=== PATIENT | male | born 1960 | race Caucasian/White ===

== ENCOUNTER → 2020-03-29 | Outpatient (CLI) | payer OTHER ==
[~2020-03-29] MED LIST: ASPI81TA59 PO; ATOR10TA60 PO; HYDR12.58 PO; IBUP800T19 PO; MULT-245 PO; OMEP20TA63 PO; TELM40TA PO
== END ==
LOC: LAB 12:13
PROVIDERS: ATTEND Nurse Anesthetist, Certified Registered
DX: Z20.828 Contact with and (suspected) exposure to other viral communicable diseases (principal)
CPT/HCPCS: U0003-CS

== ENCOUNTER → 2020-04-01 | Day surgery (SDC) | payer OTHER ==
[~2020-04-01] MED LIST changes: +IPRATRPIUM/ALBUTEROL 0.5/2.5MG 3 ML NEBU. NEB PRN; +IV RINGERS SOLUTION,LACTATED 1,000 ML IV SCH; +MIDAZOLAM HCL PF 2 MG/2 ML VIAL. IV ONE; +ONDANSETRON PF 4 MG/2 ML VIAL. IV PRN; +PROPOFOL 10,000 MCG/ML (20ML) VIAL IV ONE
[2020-04-01 08:56] VITALS: BP 129/92
== END | disposition home or self-care (01) ==
LOC: SURG 06:47
PROVIDERS: ATTEND Internal Medicine Gastroenterology
DX: Z12.11 Encounter for screening for malignant neoplasm of colon (principal); K57.30 Diverticulosis of large intestine without perforation or abscess without bleeding; K63.89 Other specified diseases of intestine; I10 Essential (primary) hypertension; M19.90 Unspecified osteoarthritis, unspecified site; K21.9 Gastro-esophageal reflux disease without esophagitis; E78.00 Pure hypercholesterolemia, unspecified; G47.33 Obstructive sleep apnea (adult) (pediatric); Z98.890 Other specified postprocedural states; Z79.899 Other long term (current) drug therapy; Z79.82 Long term (current) use of aspirin; Z98.52 Vasectomy status
CPT/HCPCS: 45378; J2704; J7120

== ENCOUNTER 2020-04-11 21:07 | Emergency (ER) | payer OTHER ==
[~2020-04-11] VITALS: Ht 167.6 cm; Wt 78.9 kg
[2020-04-11 21:07] VITALS: BP 133/91
[~2020-04-11 21:07] MED LIST changes: -IPRATRPIUM/ALBUTEROL 0.5/2.5MG 3 ML NEBU. NEB PRN; -IV RINGERS SOLUTION,LACTATED 1,000 ML IV SCH; -MIDAZOLAM HCL PF 2 MG/2 ML VIAL. IV ONE; -ONDANSETRON PF 4 MG/2 ML VIAL. IV PRN; -PROPOFOL 10,000 MCG/ML (20ML) VIAL IV ONE
--- NOTE | 2020-04-11 22:16 | PHYS DOC ---
Past History Past Medical History: No Pertinent History Past Surgical History: No Surgical History Alcohol Use: Occasionally Adult General Chief Complaint Chief Complaint: LACERATION/AVULSION [facility] HPI Patient is a 59-year-old male who presents for right desir laceration. Onset was greater than 12 hours ago at approximately 8:30 AM. Patient reports taking trash out and aluminum can lid pierced through trash can causing laceration to right anterior desir. Patient reported irrigating site with water and Betadine and applying pressure dressing. He reports reevaluating laceration site later this evening and due to continued bleeding applied additional pressure dressing and reported to our ER for evaluation. Of note, patient takes 81 mg aspirin daily. He is up-to-date on tetanus vaccinations. Patient otherwise asymptomatic, no shortness of breath, lightheadedness/dizziness, syncope, or pallor or fatigue since injury onset Review of Systems Review of Systems Fourteen body systems of review of systems have been reviewed. See HPI for pertinent positives and negative responses, other collado all other systems are negative, non-pertinent or non-contributory Allergies Allergies Allergies Coded Allergies Type Severity Reaction Last Updated Verified No Known Drug Allergies 03/25/20 No Physical Exam Physical Exam Constitutional: Well developed, well nourished, no acute distress, non-toxic appearance. HENT: Normocephalic, atraumatic, bilateral external ears normal, oropharynx moist, no oral exudates, nose normal. Eyes: PERRLA, EOMI, conjunctiva normal, no discharge. Neck: Normal range of motion, no tenderness, supple, no stridor. Cardiovascular: Heart rate regular, sinus rhythm, no murmurs rubs or gallops Lungs & Thorax: Bilateral breath sounds clear to auscultation Abdomen: Bowel sounds normal, soft, no tenderness, no masses, no pulsatile masses. Nonsurgical abdomen, no peritoneal signs Skin: Warm, dry, no erythema, no rash. Simple horizontal 2.5 cm laceration with epidermal and mild dermis involvement to right anterior desir with minimal bleeding present, no underlying ligamentous/tendon/nerve/muscle belly inv olvement present Back: No tenderness, no CVA tenderness. Extremities: No tenderness, no cyanosis, no clubbing, ROM intact, no edema. Neurologic: Alert and oriented X 3, grossly normal motor & sensory function, no focal deficits noted. Psychologic: Affect normal, judgement normal, mood normal. Current Patient Data Vital Signs Vital Signs Date Time Temp Pulse Resp B/P (MAP) Pulse Ox O2 Delivery O2 Flow Rate FiO2 04/11/20 21:07 98.6 72 18 133/91 (105) 99 Room Air EKG EKG [] Radiology/Procedures Radiology/Procedures [] Course & Med Decision Making Course & Med Decision Making ABCs non-concerning Comprehensive history and physical exam obtained, pressure dressing unwrapped and direct pressure was applied for approximately 15 minutes with hemostasis achieved Patient was observed in our ER without recurrence of bleeding. Discussed potential options of closure, given superficial extent of injury, joint decision to apply Dermabond, this was performed and patient tolerated it well Ultimately, patient eager and ready for discharge, I feel this is appropriate with close PCP follow-up in upcoming 3 to 10 days time Strict return precautions were discussed with good understanding by patient, all questions and concerns addressed prior to ER departure in stable condition Dragon Disclaimer Dragon Disclaimer This electronic medical record was generated, in whole or in part, using a voice recognition dictation system. Laceration Repair Lac Repair Indication: Simple superficial laceration to right anterior desir Procedure: The patient was placed in the appropriate position and irrigated with water and cleansed with topical alcohol wipe. Dermabond was applied with good approximation of skin borders. Site was cleansed and clean dressing was applied Total repaired wound length: 2.5 cm Other Items: Dermabond The patient tolerated the procedure well without any apparent complications noted or reported Departure Departure: Impression: Primary Impression: Laceration of skin of right lower leg without complication Disposition: 01 HOME/RESIDENCE PRIOR TO ADM Condition: STABLE Referrals: SHARIFA SIGALA DO (PCP) Patient Instructions: Laceration Care, Adult Justification of Admission: Justification of Admission: Justification of Admission Dx: N/A DANIKA SERVIN DO Apr 11, 2020 22:16
== END 2020-04-11 22:40 | disposition home or self-care (01) ==
LOC: ER 21:07
DX: S81.811A Laceration without foreign body, right lower leg, initial encounter (principal); W26.8XXA Contact with other sharp object(s), not elsewhere classified, initial encounter; Y93.89 Activity, other specified; Y92.89 Other specified places as the place of occurrence of the external cause; Y99.8 Other external cause status
CPT/HCPCS: 12001; 99282

== ENCOUNTER 2020-04-20 08:50 | Emergency (ER) | payer OTHER ==
[~2020-04-20] VITALS: Ht 167.6 cm; Wt 79.9 kg
[2020-04-20 08:50] VITALS: BP 142/89
[2020-04-20] MEDS ORDERED: CLIN300C8 PO (09:08)
--- NOTE | 2020-04-20 09:08 | PHYS DOC ---
Past History Past Medical History: No Pertinent History Past Surgical History: No Surgical History Alcohol Use: Occasionally Adult General Chief Complaint Chief Complaint: CELLULITIS HPI HPI Patient is a 59-year-old male who presents to the emergency room concerned about a possible wound infection. Patient was seen last week after he cut his leg with a dog food can while taking out the trash. He states that at that time they glued the wound closed. He states is progressively gotten worse and he is developed redness around the wound. He denies any drainage. He states it is starting to have pain around it. He denies any fevers, chills, nausea, vomiting, streaking Review of Systems Review of Systems General: Denies fever, chills, sweats, fatigue Eyes: Denies drainage, blurred vision, eye redness HENT: Denies rhinorrhea, sore throat, earache Respiratory: Denies cough, shortness of breath, wheezing Cardiac: Denies edema, palpitations, chest pain GI: Denies abdominal pain, Nausea, vomiting MSK: Denies back pain, neck pain Skin: Denies rash, jaundice Neuro: Denies headache, dizziness Psychiatric: Denies SI/HI Allergies Allergies Allergies Coded Allergies Type Severity Reaction Last Updated Verified No Known Drug Allergies 03/25/20 No Physical Exam Physical Exam \General: Awake, alert, NAD. Well Nourished, well hydrated. Cooperative HEENT: Atraumatic, EOMI, PERRL, airway patent, moist oral mucosa Neck: Supple, trachea midline Respiratory: CTA bilaterally, normal effort, no wheezing/crackles CV: RRR, no murmur, cap refill <2 GI: Soft, nondistended, nontender, no masses MSK: No obvious deformities Skin: Warm, dry, 3 cm wound to R anterior desir with surrounding erythema, no drainage or induration Neuro: A&O x3, speech NL, sensory and motor grossly intact, no focal deficits Psych: Normal affect, normal mood, not suicidal or homicidal EKG EKG [] Radiology/Procedures Radiology/Procedures [] Course & Med Decision Making Course & Med Decision Making Pertinent Labs and Imaging studies reviewed. (See chart for details) Patient is a 59-year-old male who presents to the emergency room complaining of possible wound infection. Patient does appear to have some cellulitis surrounding the wound. There is no drainage and nothing that needs to be drained. Patient will be placed on antibiotics and discharged home. Patient's test results and vitals while in the ED were fully reviewed and discussed with the patient. Patient is stable and at this time does not need admission to the hospital. We have discussed strict return precautions and the importance of following up with their Primary Care Physician. Patient stated understanding and was given an opportunity to ask any questions. Patient is in agreement with plan. Dragon Disclaimer Dragon Disclaimer This electronic medical record was generated, in whole or in part, using a voice recognition dictation system. Departure Departure: Impression: Primary Impression: Cellulitis Disposition: HOME/RESIDENCE PRIOR TO ADM Condition: STABLE Referrals: SHARIFA SIGALA DO (PCP) Patient Instructions: Wound Infection, [id number] Scripts Clindamycin Hcl (CLINDAMYCIN HCL) 300 Mg Capsule 1 CAP PO TID for infx, #21 CAP Prov: HIGINIO CHRISTIANSON MD 04/20/20 Justification of Admission: Justification of Admission: Justification of Admission Dx: N/A HIGINIO CHRISTIANSON MD Apr 20, 2020 09:08
== END 2020-04-20 09:13 | disposition home or self-care (01) ==
LOC: ER 08:50
DX: S80.921A Unspecified superficial injury of right lower leg, initial encounter (principal); L03.115 Cellulitis of right lower limb; W26.8XXA Contact with other sharp object(s), not elsewhere classified, initial encounter; Y93.89 Activity, other specified; Y92.89 Other specified places as the place of occurrence of the external cause; Y99.8 Other external cause status
CPT/HCPCS: 99283

== ENCOUNTER 2021-05-30 07:35 | Emergency (ER) | payer OTHER ==
[~2021-05-30] VITALS: Ht 167.6 cm; Wt 80.4 kg
[~2021-05-30 07:35] MED LIST changes: +CLIN-95 PO
--- NOTE | 2021-05-30 07:45 | PHYS DOC ---
Past History Past Medical History: Hypertension Past Surgical History: Tonsillectomy Alcohol Use: Occasionally Adult General HPI HPI Patient is a 60-year-old male presenting for eye problems. Reports for past 3 days he has been outside doing yard work such as mowing his field and trimming brushes. States he has been wearing eye protection but admits there have been times where he thought he got something in his eye. He has been itching his eyes more frequently and has had ongoing foreign body sensation. He has had no major changes in vision but ongoing itching concerned him as he is planning to head out of [place] for [place] and wanted to be evaluated. He has a history of hypertension but otherwise no other medical issues, he does not wear contacts Review of Systems Review of Systems Fourteen body systems of review of systems have been reviewed. See HPI for pertinent positives and negative responses, other collado all other systems are negative, non-pertinent or non-contributory Allergies Allergies Allergies Coded Allergies Type Severity Reaction Last Updated Verified No Known Drug Allergies 03/25/20 No Physical Exam Physical Exam Constitutional: Well developed, well nourished, no acute distress, non-toxic appearance. HENT: Normocephalic, atraumatic, bilateral external ears normal, oropharynx moist, no oral exudates, nose normal. Eye exam: The patient was examined with the slit lamp. Extraocular movements are intact Pupils are equally round and reactive to light Visual acuity: 20/10 R, 20/13 L, 20/13 bilat Eyelids/under eyelids: normal Conjunctivae and sclera: normal Corneas: Right eye at 9 o'clock position was a small fluorescein uptake consistent with corneal abrasion in addition to left eye at 6 o'clock position there was small fluorescein uptake consistent with corneal abrasion otherwise negative with no Luther sign Anterior chambers: normal without cell, flare, or hyphema Neck: Normal range of motion, no tenderness, supple, no stridor. Cardiovascular: Heart rate regular per monitor Lungs & Thorax: No respiratory distress or accessory muscle use, bilateral chest rise Abdomen: Abdomen soft, non-tender, bowel sounds present in all quadrants, no guarding or rebound, nonacute abdomen. Skin: Warm, dry, no erythema, no rash. Back: No tenderness, no CVA tenderness. Extremities: No tenderness, no cyanosis, no clubbing, ROM intact, no edema. Neurologic: Alert and oriented X 3, grossly normal motor & sensory function, no focal deficits noted. Psychologic: Affect normal, judgement normal, mood normal. Current Patient Data Vital Signs Vital Signs Date Time Temp Pulse Resp B/P (MAP) Pulse Ox O2 Delivery O2 Flow Rate FiO2 05/30/21 07:47 98.2 61 16 161/88 (112) 99 Vital Signs Date Time Temp Pulse Resp B/P (MAP) Pulse Ox O2 Delivery O2 Flow Rate FiO2 05/30/21 07:47 98.2 61 16 161/88 (112) 99 EKG EKG [] Radiology/Procedures Radiology/Procedures [] Heart Score C/O Chest Pain: No Risk Factors: Risk Factors: DM, Current or recent (<one month) smoker, HTN, HLP, family history of CAD, obesity. Risk Scores: Risk Factors: DM, Current or recent (<one month) smoker, HTN, HLP, family history of CAD, obesity. Course & Med Decision Making Course & Med Decision Making ABCs unremarkable HPI physical exam and comprehensive ER work-up nonconcerning for any emergent or surgical issues Patient has bilateral corneal abrasions, unsure if etiology is due to external allergen or self-induced scratching Does not wear contacts, joint decision made to treat with eyedrops with close outpatient Optho follow-up Strict return precautions discussed with understanding verbalized by patient, all questions and concerns addressed prior to ER departure [place] Disclaimer [place] Disclaimer This electronic medical record was generated, in whole or in part, using a voice recognition dictation system. Departure Departure: Impression: Primary Impression: Corneal abrasion of both eyes Disposition: HOME / SELF CARE / HOMELESS Condition: STABLE Referrals: SHARIFA SIGALA DO (PCP) Patient Instructions: Eye - Corneal Abrasion, [id number] Additional Instructions: You were seen for eye pain. You most likely have a corneal abrasion and was caused by trauma to the eye. The pain should improve in the next few days. Use over the counter eye drops or any medications prescribed here as directed. Return to the ED if you develop worsening pain, vision change, fever, or any other new or concerning symptoms. Follow up with an floral manager as needed or if continued symptoms. Scripts Ketorolac Tromethamine (KETOROLAC TROMETHAMINE) 5 Ml Drops 1 DROP EACHEYE QID for pain for 3 Days, #5 ML 0 Refills Prov: DANIKA SERVIN DO 05/30/21 Ciprofloxacin Hcl (CIPROFLOXACIN HCL) 2.5 Ml Drops 1 DROP EACHEYE QID for corneal abrasion for 5 Days, #5 ML 0 Refills Prov: DANIKA SERVIN DO 05/30/21 DANIKA SERVIN DO May 30, 2021 07:45
[2021-05-30 07:47] VITALS: BP 161/88
[2021-05-30] MEDS ORDERED: FLUORESCEIN 1MG EYE STRIP. ONE (07:53)
[2021-05-30] MEDS ORDERED: CIPR2.5D2 EACHEYE (08:06)
[2021-05-30] MEDS ORDERED: KETO5DRO72 EACHEYE (08:07)
== END 2021-05-30 08:11 | disposition home or self-care (01) ==
LOC: ER 07:35
DX: S05.02XA Injury of conjunctiva and corneal abrasion without foreign body, left eye, initial encounter (principal); S05.01XA Injury of conjunctiva and corneal abrasion without foreign body, right eye, initial encounter; I10 Essential (primary) hypertension; X58.XXXA Exposure to other specified factors, initial encounter; Y93.89 Activity, other specified; Y92.89 Other specified places as the place of occurrence of the external cause; Y99.8 Other external cause status
CPT/HCPCS: 99283